=== PATIENT | male | born 1990 | race Caucasian/White ===

== ENCOUNTER 2020-04-04 09:02 | Emergency (ER) | payer OTHER ==
[~2020-04-04] VITALS: Ht 180.3 cm; Wt 63.5 kg
[2020-04-04 09:18] VITALS: BP 103/77
[2020-04-04] MEDS ORDERED: FLEXERIL PO (09:35)
[2020-04-04] MEDS ORDERED: TRAMADOL 50 MG50 MG PO (09:35)
[2020-04-04] MEDS ORDERED: PREDNISONE 20 M20 M1 PO (09:35)
== END 2020-04-04 09:43 | disposition home or self-care (01) ==
LOC: M.ERS 09:02
DX: M54.31 Sciatica, right side (principal); F17.210 Nicotine dependence, cigarettes, uncomplicated

== ENCOUNTER 2020-04-17 17:14 | Emergency (ER) | payer OTHER ==
[~2020-04-17] VITALS: Ht 175.3 cm; Wt 65.8 kg
[~2020-04-17 17:14] MED LIST: FLEXERIL PO; PREDNISONE 20 M20 M1 PO; TRAMADOL 50 MG50 MG PO
[2020-04-17] MEDS ORDERED: MEDROLDOSEPACK PO (17:44)
[2020-04-17] MEDS ORDERED: FLEXERIL PO (17:44)
[2020-04-17 17:50] VITALS: BP 129/69
== END 2020-04-17 17:51 | disposition home or self-care (01) ==
LOC: M.ERS 17:14
DX: M54.31 Sciatica, right side (principal); Z76.0 Encounter for issue of repeat prescription; F17.210 Nicotine dependence, cigarettes, uncomplicated

== ENCOUNTER 2020-05-05 16:52 | Emergency (ER) | payer OTHER ==
[~2020-05-05] VITALS: Ht 175.3 cm; Wt 68.0 kg
[~2020-05-05 16:52] MED LIST changes: +MEDROLDOSEPACK PO
[2020-05-05] MEDS ORDERED: NORCO 5-325 TA1 EAC2 PO (17:55)
[2020-05-05] MEDS ORDERED: PREDNISONE 10 M10 M1 PO (17:55)
[2020-05-05] MEDS ORDERED: FLEXERIL PO (17:55)
[2020-05-05] MEDS ORDERED: IBUPROFEN 800800 M1 PO (17:55)
[2020-05-05 17:59] VITALS: BP 121/81
== END 2020-05-05 17:59 | disposition home or self-care (01) ==
LOC: M.ERS 16:52
DX: M54.41 Lumbago with sciatica, right side (principal); F17.210 Nicotine dependence, cigarettes, uncomplicated

== ENCOUNTER 2020-10-11 05:47 | Emergency (ER) | payer OTHER ==
[~2020-10-11] VITALS: Ht 175.3 cm; Wt 59.0 kg
[~2020-10-11 05:47] MED LIST changes: +IBUPROFEN 800800 M1 PO; +NORCO 5-325 TA1 EAC2 PO; +PREDNISONE 10 M10 M1 PO
[2020-10-11 06:10] LABS: URINE BILIRUBIN NEGATIVE (Negative); URINE BLOOD NEGATIVE (Negative); URINE CLARITY CLEAR; URINE COLOR YELLOW; URINE GLUCOSE-RANDOM NEGATIVE (Negative); URINE KETONES NEGATIVE (Negative); URINE LEUKOCYTES-REFLEX NEGATIVE (Negative); URINE NITRITE-REFLEX NEGATIVE (Negative); URINE PROTEIN TRACE (Negative); URINE SPECIFIC GRAVITY >= 1.030 (1.005-1.030); URINE UROBILINOGEN 0.2 E.U./dl (0.2-1.0)
[2020-10-11 06:14] LABS: AMP/METHAMP Negative (Negative); BARBITURATES Negative (Negative); BENZODIAZEPINES Negative (Negative); COCAINE Negative (Negative); METHADONE Negative (Negative); OPIATES Negative (Negative); PCP Negative (Negative); THC POSITIVE (Negative)
[2020-10-11 06:24] LABS: ABSOLUTE BASOPHILS 0.1 thou/uL (0.0-0.2); ABSOLUTE EOSINOPHILS 0.5 thou/uL (0.0-0.7); ABSOLUTE LYMPHOCYTES 2.7 thou/uL (0.8-5.3); ABSOLUTE NEUTROPHILS 6.5 thou/uL (1.6-8.1); EOSINOPHILS 4.8 %; HEMATOCRIT 46.1 % (42.0-52.0); HEMOGLOBIN 15.6 gm/dL (14.0-18.0); LYMPHOCYTES 25.2 %; MCH 32.5 pg (26.0-34.0); MCHC 33.9 g/dL (28.0-37.0); MCV 95.9 fL (80.0-100.0); MONOCYTES 8.8 %; MPV 8.5 fl. (7.2-11.1); NUCLEATED RBCS 0 /100WBC; PLATELET COUNT* 279 thou/uL (150-400); POLYS 60.2 %; RBC 4.81 mil/uL (4.50-6.00); RDW-CV 13.7 % (10.5-14.5); WBC 10.8 thou/uL (4.0-11.0)
[2020-10-11] MEDS ORDERED: TORADOL 10 MG T10 MG PO (06:25)
[2020-10-11] MEDS ORDERED: MEDROLDOSEPACK PO (06:25)
[2020-10-11 06:32] LABS: CALCIUM 8.8 mg/dL (8.5-10.1); CREATININE 1.1 mg/dL (0.6-1.3); POTASSIUM 3.8 mmol/L (3.5-5.1)
[2020-10-11 06:37] LABS: ALBUMIN 4.2 g/dL (3.4-5.0); TOTAL BILIRUBIN 0.2 mg/dL (<0.1-1.0); TOTAL PROTEIN 7.3 g/dL (6.4-8.2)
[2020-10-11 06:52] VITALS: BP 117/90
== END 2020-10-11 06:53 | disposition home or self-care (01) ==
LOC: M.ERS 05:47
PROVIDERS: Personal Emergency Response Attendant
DX: M54.41 Lumbago with sciatica, right side (principal)